=== PATIENT | female | born 1970 | race African-American/Black ===

== ENCOUNTER 2020-11-23 21:02 | Emergency (ER) | payer BC ==
[~2020-11-23] VITALS: Ht 162.6 cm; Wt 90.7 kg
[~2020-11-23 21:02] MED LIST: CIPROFLOXACIN500 M1 PO; DIPHENHIST50 MG PO; FLONASE 0.05%50 MCG NASAL; FOLGARD TABLET1 EAC1 PO; VALIUM2 MG PO; ZOLOFT 50 MG TA50 M1 PO
[2020-11-23] MEDS ORDERED: PREDNISONE 20 M20 MG PO (21:49)
[2020-11-23] MEDS ORDERED: CENTANY30 GM TOP (21:49)
[2020-11-24 08:07] VITALS: BP 00/00
== END 2020-11-23 22:15 | disposition home or self-care (01) ==
LOC: ER 21:02
DX: T78.49XA Other allergy, initial encounter (principal); Z88.8 Allergy status to other drugs, medicaments and biological substances; W57.XXXA Bitten or stung by nonvenomous insect and other nonvenomous arthropods, initial encounter